=== PATIENT | female | born 1965 | race Two or more races ===

== ENCOUNTER 2024-07-24 16:27 | Emergency (ER) | payer OTHER ==
[~2024-07-24] VITALS: Ht 160 cm; Wt 90.7 kg
[2024-07-24 18:30] LABS: HEMOGLOBIN 13.6 g/dL (12.0-15.00); MEAN CORPUSCULAR HEMOGLOBIN 27.2 pg (27.00-32.0); MEAN CORPUSCULAR HGB CONC 33.2 g/dl (32.0-36.0); PLATELET COUNT 131 K/uL (150-450); RED CELL DISTRIBUTION WIDTH 14.9 % (11.5-14.5)
[2024-07-24 18:54] LABS: ALBUMIN 3.3 gm/dL (3.4-5.0); BILIRUBIN TOTAL 0.55 mg/dL (0.3-1.2); CALCIUM 8.5 mg/dL (8.5-10.1); CREATININE SERUM 1.25 mg/dL (0.55-1.02); GFR 44.17; GLOBULINA 4.6 G/DL (2.4-3.5); POTASSIUM 3.42 mEq/L (3.5-5.1); TOTAL PROTEIN 7.9 gm/dL (6.4-8.2)
[2024-07-24] MEDS ORDERED: 0.9 % SODIUM CHLORIDE 1,000 ML IV STA (20:52)
== END 2024-07-24 22:46 | disposition home or self-care (01) ==
LOC: ER 16:29
DX: J06.9 Acute upper respiratory infection, unspecified (principal); I10 Essential (primary) hypertension; Z20.822 Contact with and (suspected) exposure to COVID-19